=== PATIENT | female | born 2000 | race Caucasian/White ===

== ENCOUNTER 2025-05-26 11:32 | Emergency (ER) | payer MEDICAID, SELFPAY ==
--- NOTE | ~2025-05-26 | CT_ITS ---
EXAMINATION: CT HEAD WITHOUT IV CONTRAST HISTORY: severe headache, nausea, woke up w black eye. TECHNIQUE: Unenhanced helical CT of the head was performed per standard departmental protocol. Coronal and sagittal reformats of the head were also evaluated. One or more of the following techniques was used for dose reduction: Automated exposure control, adjustment of the mA and/or kV according to patient size, use of iterative reconstruction technique. DLP: 578 mGy-cm COMPARISON: There are no prior studies available for comparison. FINDINGS: BRAIN: The brain parenchyma is unremarkable. There is normal kimbrough/white differentiation. The ventricular system is normal in size and configuration. There is no mass effect or midline shift. No intra- or extra-axial fluid collections are identified. SINUSES: The visualized paranasal sinuses are clear. The mastoid air cells and middle ear cavities are well pneumatized. ORBITS: The visualized orbits are unremarkable. BONES/SOFT TISSUES: The extracranial soft tissues are unremarkable. The calvarium is intact. No suspicious lytic or sclerotic lesions. CT/CT head/brain wo IV con IMPRESSION: Unremarkable exam. Electronically signed by: Sarah Yo MD 05/26/2025 02:47 PM EDT
--- NOTE | ~2025-05-26 | US_ITS ---
EXAMINATION: US ABDOMEN LIMITED CLINICAL INFORMATION: Right upper quadrant pain, nausea, vomiting, elevated bilirubin. COMPARISON: None available. TECHNIQUE: Real-time imaging of the right upper quadrant abdominal viscera. FINDINGS: GALLBLADDER: The gallbladder is physiologically distended without evidence of stones, sludge, polyps, wall thickening or pericholecystic fluid. COMMON BILE DUCT: Normal in caliber measuring 0.2 cm in diameter. Discussed with hassock maker. No tenderness reported in the area of the gallbladder. US/US abdomen limited IMPRESSION: No evidence of cholelithiasis. No sonographic findings suggest acute cholecystitis. Electronically signed by: Renato Zurita MD 05/26/2025 04:35 PM EDT
[2025-05-26 11:44] VITALS: BP 117/77; PULSE 57; RESP 18; TEMP 37.1; O2SAT 99; BMI 20.4
--- NOTE | 2025-05-26 11:51 | ED.GENADULT ---
HPI - General Adult General Chief complaint: Nausea/Vomiting/Diarrhea Stated complaint: vomiting, headache Time Seen by Provider: 05/26/25 12:05 Source: patient and other (Friend at bedside) Mode of arrival: ambulatory Limitations: no limitations History of Present Illness ED Provider: LIZZY Peralta HPI narrative: 25-year-old female without significant medical history presents to the ED due to headache and vomiting. Patient states she woke up this morning and shortly after noticed she had a severe frontal, throbbing headache. Patient states she tried to take a warm shower, but felt nauseous and vomited twice. Patient reports the headache is associated with photosensitivity, and neck pain. Patient states she noticed a black eye on the right side, but does not know how this happened does not remember injury/trauma or fall. Patient had 2 more episodes of vomiting while in the department today. Denies sick contacts, chest pain, shortness of breath, diarrhea, black/tarry stool MD complaint: headache, nausea, vomiting Related Data Allergies Allergy/AdvReac Type Severity Reaction Status Date / Time lactose Allergy Unknown Verified 05/26/25 11:47 wheat Allergy Unknown Verified 05/26/25 11:47 [facility] Past Medical History Attestation statement: The following information was validated with the patient. Source: old records reviewed and nursing notes reviewed Physical Exam ED Vital Signs: Vital Signs - 24 hr 05/26/25 14:13 05/26/25 18:01 Temperature 97.3 F Pulse Rate 68 64 Respiratory Rate 15 64 H Blood Pressure 108/64 104/53 L Pulse Oximetry 97 100 Oxygen Delivery Method Room Air Room Air BMI result Body Mass Index 20.4 GENERAL APPEARANCE: ?AxOx4, generally well-appearing, no acute distress. HEENT: ?NC. MMM. EOMI, clear conjunctiva, small ecchymosis under the R eye, oropharynx clear. TTP of B/L cervical paraspinal muscles, no midline spinal tenderness, no bony step offs palpated or observed, full ROM intact NECK: ?Supple without lymphadenopathy.? No stiffness or restricted ROM. HEART:? Normal rate and regular rhythm, normal S1/S2, no m/r/g LUNGS:? CTAB, moving air well. No crackles or wheezes are heard. ABDOMEN: ?Soft, nondistended, no rigidity, mild TTP of the right upper quadrant BACK: No CVAT, no obvious deformity. EXTREMITIES: ?Without cyanosis, clubbing or edema. NEUROLOGICAL: ?Grossly nonfocal. Alert and oriented, moving all 4 extremities. Negative Brudzinski, negative Kernig sign, patient is able to fully flex, extend, and perform lateral bending, without pain, no altered mental status or confusion. Skin: ?Warm and dry without any rash. Course Course Course Narrative: RME: 25 year female presents to ED for headache, neck pain 2 episodes of clear vomiting that began this morning. Patient states weakness Tylenol. Patient states no one else at home is sick. Vital signs stable. Labs COVID influenza UA ordered Medications Administered Discontinued Medications Generic Name Dose Route Start Last Admin Trade Name Freq PRN Reason Stop Dose Admin Diphenhydramine HCl 25 mg 05/26/25 14:28 05/26/25 14:58 Diphenhydramine Hcl 50 Mg/Ml Vial IVPUSH 05/26/25 14:29 25 mg ONCE ONE Administration Acetaminophen 1,000 mg in 100 mls @ 400 mls/hr 05/26/25 14:24 05/26/25 15:44 Ofirmev IV 05/26/25 14:38 Infused ONCE ONE Infusion Lactated Ringer's 1,000 mls @ 999 mls/hr 05/26/25 13:30 05/26/25 14:30 Lr IV 05/26/25 14:30 Infused .Q1H1M LEX Infusion Metoclopramide HCl 10 mg 05/26/25 14:28 05/26/25 14:58 Metoclopramide Hcl 10 Mg/2 Ml Vial IVPUSH 05/26/25 14:29 10 mg ONCE ONE Administration Ondansetron HCl 4 mg 05/26/25 13:30 05/26/25 13:30 Ondansetron Hcl 4 Mg/2 Ml Vial IVPUSH 05/26/25 13:31 4 mg ONCE ONE Administration Medical Decision Making Medical Decision Making MDM Narrative: 25-year-old female without significant medical history presents to the ED due to headache and vomiting. Patient states she woke up this morning and shortly after noticed she had a severe frontal, throbbing headache. Patient states she tried to take a warm shower, but felt nauseous and vomited twice. Patient reports the headache is associated with a photosensitivity, and neck pain. Patient states she noticed a black eye on the right side, but does not know how this happened does not remember injury/trauma or fall. Patient had 2 more episodes of vomiting while in the department today. VS on initial observation-BP 108/64, pulse rate of 68, respiratory rate of 15, afebrile with oral temp of 98.7?, O2 saturation 97% on room air. Physical exam reveals lungs clear to auscultation bilaterally, cardiac exam with regular rate and rhythm without murmurs/rubs/gallops, abdomen is soft, non distended, no guarding with mild tenderness of the RUQ, extremities without edema, TTP of bilateral cervical paraspinal muscles, no midline spinal tenderness, full ROM, negative Brudzinski, negative Kernig sign, no meningeal signs. Plan: labs, UA, CT head/brain, US abdomen - Patient medicated with IV fluids, 1g IV tylenol, 10mg IV reglan, 25mg IV benadryl Labs without leukocytosis/leukopenia, left shift of 74.2, H&H stable, elevated bilirubin at 1.8, lipase WNL at 28, beta hCG negative, no electrolyte abnormalities. Viral serology negative CT head brain negative U/S abdomen negative for cholelithiasis, cholecystitis Patient presents with headache this morning upon waking up associated with photosensitivity and nausea. Patient had a black eye on the R side but does not know how it happened. Denies thunderclap onset, focal neurological deficits, altered mental status, vision loss, or meningeal signs. Vitals reviewed: patient afebrile and hemodynamically stable. Neuro exam nonfocal. NIHSS = 0. Labs reviewed and without acute abnormalities. CT head obtained and did not show hemorrhage or mass effect. Low suspicion for SAH, meningitis, stroke, or other secondary emergent cause of headache at this time. Given reassuring exam and stable vitals, most consistent with migraine. Patient treated with IV fluids, IV reglan, IV benadryl and IV tylenol with improvement of symptoms. Patient clinically stable for discharge with strict return precautions for sudden severe ?thunderclap? headache, fever, vision loss, new neurological deficits, or change from baseline headache pattern. I encouraged patient to follow up with PCP, patient is in agreement with the plan. Differential Diagnosis Differential Diagnoses: The differential diagnosis associated with the presentation includes ICH meningitis Migraine Tension headache Electrolyte abnormality Admission/Observation Consideration of admission/observation: Escalation of care including admission/observation considered Lab Data MDM Lab Attestation statement: I reviewed the patient's lab results. 05/26/25 11:57 05/26/25 11:57 Labs: Lab Results 05/26/25 05/26/25 Range/Units 11:57 16:42 WBC 8.3 (4.8-10.8) X10*3/uL RBC 3.86 L (4.20-5.50) X10*6/uL Hgb 12.1 (12.0-16.0) g/dl Hct 36.7 L (37.0-47.0) % MCV 95.1 (80.0-98.0) fL MCH 31.3 (27.0-33.0) pg MCHC 33.0 (31.0-35.0) g/dl RDW 11.8 (11.0-16.0) % Plt Count 201 (160-400) X10*3/uL MPV 9.5 (9.4-12.3) fL Immature Gran % (Auto) 0.5 H (0.0-0.4) % Neut % (Auto) 74.2 H (45-73) % Lymph % (Auto) 18.8 L (20-40) % [place] % (Auto) 5.6 (2-11) % Eos % (Auto) 0.4 (0-4) % Baso % (Auto) 0.5 (0-2) % Lymph # (Auto) 1.6 (1.2-4.9) X10*3/uL [place] # (Auto) 0.5 (0.1-1.2) X10*3/uL Eos # (Auto) 0.0 (0.0-0.4) X10*3/uL Baso # (Auto) 0.0 (0.0-0.2) X10*3/uL Abs Immat Gran (auto) 0.04 H (0.00-0.03) X10*3/uL Absolute Neuts (auto) 6.1 (2.0-8.3) x10*3/uL Absolute Nucleated RBC 0.000 (0.0-0.012) X10*3/uL Nucleated RBC % (auto) 0.0 (0.0-0.2) /100WBC Sodium 136 (135-145) mmol/L Potassium 4.5 (3.3-5.1) mmol/L Chloride 103 (96-108) mmol/L Carbon Dioxide 29 (22-29) mmol/L Anion Gap 9 L (12-20) BUN 12 (9-16) mg/dL Creatinine 0.58 (0.5-1.4) mg/dL Estim Creat Clear Calc 138.0 Estimated GFR > 60 Random Glucose 98 (60-115) mg/dL Calcium 8.8 (8.4-10.2) mg/dL Total Bilirubin 1.8 H (0.0-1.0) mg/dL AST 21 (5-31) U/L ALT 15 (0-31) U/L Alkaline Phosphatase 51 (39-117) U/L Total Protein 6.9 (6.5-8.0) g/dL Albumin 4.5 (3.5-5.0) g/dL Lipase 28 (8-78) U/L Beta HCG, Quant < 2 mIU/mL Urine Color Yellow Urine Appearance Cloudy Urine pH >= 9.0 (5.0-9.0) Ur Specific [place] 1.025 (1.005-1.025) Urine Protein Trace (Neg-Trace) mg/dL Urine Glucose (UA) Negative (Negative) mg/dL Urine Ketones 15 (Negative) mg/dL Urine Blood Negative (Negative) Urine Nitrite Negative (Negative) Ur Leukocyte Esterase Negative (Negative) COVID-19 (SID) Negative (Negative) COVID-19 Clin Com See Note Influenza Type A (YUE) Negative (Negative) Influenza Type B (YUE) Negative (Negative) Influenza A & B Note See Note Independent Interpretation I performed an independent interpretation of an: CT Scan Interpretation: I independently interpreted the CT head brain which was negative for acute intracranial findings, I agree with the radiologist's interpretation Radiology Impression Discussion of test interpretation with radiology: I have reviewed the radiologist's reading. Radiologist Impression: CT head brain FINDINGS: BRAIN: The brain parenchyma is unremarkable. There is normal kimbrough/white differentiation. The ventricular system is normal in size and configuration. There is no mass effect or midline shift. No intra- or extra-axial fluid collections are identified. SINUSES: The visualized paranasal sinuses are clear. The mastoid air cells and middle ear cavities are well pneumatized. ORBITS: The visualized orbits are unremarkable. BONES/SOFT TISSUES: The extracranial soft tissues are unremarkable. The calvarium is intact. No suspicious lytic or sclerotic lesions. CT/CT head/brain wo IV con IMPRESSION: Unremarkable exam. Electronically signed by: Sarah Yo MD 05/26/2025 02:47 PM EDT RP Dictated By: Sarah Yo MD Signed By: <Electronically signed by Sarah Yo MD in OV> 05/26/25 1449 Independent Historian Clinical information obtained from an independent historian. History obtained from or confirmed by: Other (Friend at bedside corroborating history) External Record Review External record reviewed: Inpatient record, Office record and Outpatient record Chronic Conditions Patient?s care impacted by: Other (No known medical history) Discharge Plan Discharge Clinical Impression: Migraine Patient Disposition: Home, Self-Care Instructions: Migraine Headache (ED) Additional Instructions: You were evaluated in the ED for severe headache with nausea and vomiting. Your blood work was reassuring as there is no elevation or decrease in your white blood cell count indicative of infection. No electrolyte abnormality. Your bilirubin was elevated however the ultrasound of your abdomen was negative. Please follow up with your primary care doctor on these findings. The CT of your head brain was negative for any acute intracranial findings. Your symptoms improved after being medicated with IV fluids, 1 g of IV Tylenol, 10 mg of Reglan, and 25 mg of Benadryl. Your symptoms are most likely due to migraine headache. Please ensure you are getting plenty of hydration, and rest. You can manage pain at home by taking 500 mg of Tylenol, 400 mg of ibuprofen every 6 hours. Please follow up with your primary care doctor to ensure resolution of your symptoms. Please return to the emergency department if you experience worsening nausea, vomiting, worsening headache, altered mental status, confusion, chest pain, shortness of breath or any new/worsening/concerning symptoms Interventions: ED Discharge Assessment Last Done: 05/26/25 18:01 Discharge Date/Time: 05/26/25 18:02 Print Language: Slovenian
[2025-05-26 12:01] LABS: MANUAL DIFF FLAG NO
[2025-05-26 12:03] LABS: Hematocrit 36.7 % (37.0-47.0); Hemoglobin 12.1 g/dl (12.0-16.0); Imm Gran Abs Auto 0.04 X10*3/uL (0.00-0.03); Imm Gran Pct Auto 0.5 % (0.0-0.4); Lymphocytes Absolute Auto 1.6 X10*3/uL (1.2-4.9); Mean Corpuscular HGB Conc 33.0 g/dl (31.0-35.0); Mean Corpuscular Hemoglobin 31.3 pg (27.0-33.0); Mean Corpuscular Volume 95.1 fL (80.0-98.0); NRBC Abs Auto 0.000 X10*3/uL (0.0-0.012); NRBC Pct Auto 0.0 /100WBC (0.0-0.2); Platelet Count 201 X10*3/uL (160-400); Red Blood Count 3.86 X10*6/uL (4.20-5.50); White Blood Count 8.3 X10*3/uL (4.8-10.8)
[2025-05-26 12:17] LABS: COVID-19 Test Negative (Negative); IDNOW Serial# 55D5AD1C; IDNOW Serial# 58CA691E; Influenza B2 Negative (Negative)
[2025-05-26 12:25] LABS: Alanine Aminotransferase 15 U/L (0-31); Albumin Level 4.5 g/dL (3.5-5.0); Alkaline Phosphatase 51 U/L (39-117); Anion Gap 9 (12-20); Aspartate Amino Transferase 21 U/L (5-31); Blood Urea Nitrogen 12 mg/dL (9-16); Calcium 8.8 mg/dL (8.4-10.2); Carbon Dioxide 29 mmol/L (22-29); Chloride 103 mmol/L (96-108); Creatinine Clr Calc Pharmacy 138.0; Estimated Glomerular Filt Rate > 60; Lipase 28 U/L (8-78); Potassium 4.5 mmol/L (3.3-5.1); Sodium 136 mmol/L (135-145); Total Protein 6.9 g/dL (6.5-8.0)
--- NOTE | 2025-05-26 12:34 | PC.NURSE ---
Pt roomed to valenzuela bed, VSS states frontal FORD present and N/V began shortly after FORD. Pt states FORD has happened before but she has never been dx with migraine. Pt denies light sensitivity or ay other Neuro symptoms. Pt with bruise under right eye and states she was unaware of it but says she noted tenderness under right eye but had not looked. Does not recall an injury. No other complaints.
[2025-05-26] MEDS: Lactated Ringers 1,000 ML 999 ML IV (13:30)
[2025-05-26 14:13] VITALS: BP 108/64; PULSE 68; RESP 15; O2SAT 97
--- NOTE | 2025-05-26 15:19 | PC.NURSE ---
Pt ambulated to and from BR independently- N/V improved after ofran- IVF given as ordered. Pt resting.
--- NOTE | 2025-05-26 15:50 | PC.NURSE ---
Pt is sleeping. Periorbital right discoloration noted. No active vomiting at this time.
[2025-05-26 16:49] LABS: Appearance Urine Cloudy; Glucose Urine UA Negative (Negative); PH >= 9.0 (5.0-9.0); Specific Gravity - Urine 1.025 (1.005-1.025)
--- OUTSIDE RECORDS SUMMARY | 2025-05-26 17:08 | XMS_ITS | Clinical Summary ---
Author Organization [facility] Address [address] [place] [id number] Phone Care Team Providers Care Filing And Polishing Supervisor Name Role Phone Lisbet Aly DO Primary Care Provider [phone] Allergies No known active allergies Medications No known medications Immunizations Immunization Administration Dates Next Due Rabies Fibroblast Culture 03/19/2021,03/12/2021, 03/08/2021,03/05/2021 Rabies Immune Globulin 03/05/2021 Social History Tobacco Use Types Packs/Day Years Used Date Smoking Tobacco: Never Smokeless Tobacco: Never Alcohol Use Standard Drinks/Week Comments Never 0 (1 standard drink = 0.6 oz pur e alcohol) Education Answer Date Recorded Are you interested in more education? Not on shade e 11/25/2022 Are you concerned about learning? Not on file 11/25/2022 No 11/25/2022 No 11/25/2022 Digital Access Answer Date Recorded No 12/24/2022 No 12/24/2022 No 12/24/2022 Reliable internet access at home? Not on file 12/24/2022 Device with a working camera? Not on file Comments No Sex and Gender Information Value Date Recorded Sex Assigned at Female 03/05/2021 1:14 PM EDT Legal Sex Female 12:32 PM EDT Gender Identity Non-binary 03/05/2021 1:14 PM EDT Sexual Orientation Not on file Last Filed Vital Signs Vital Sign Reading Time Taken Comments Blood Pressure 106/70 03/19/2021 8:22 AM EDT Pulse 65 03/19/2021 8:22 AM EDT Temperature 36.3 C (97.3 F) 03/19/2021 8:22 AM EDT Respiratory Rate 16 03/19/2021 8:22 AM EDT Oxygen Saturation 100% 03/19/2021 8:22 AM EDT Inhaled Oxygen Concentration - - Weight 54.4 kg (120 lb) 03/19/2021 8:22 AM EDT Height 170.2 cm (5' 7 ) 03/19/2021 8:22 AM EDT Body Mass Index 18.79 03/19/2021 8:22 AM EDT Plan of Treatment Health Maintenance Due Date Last Done Comments DEPRESSION SCREENING 2012 SMOKING Hx and SMOKELESS TOBACCO SCREENING 2013 HPV VACCINES (1 - 3-dose series) 2015 HEPATITIS C SCREENING 2018 HIV ONE-TIME SCREENING (18-6 5 YEARS) 2018 PAP SMEAR 2021 INFLUENZA VACCINE (#1) 2025 07/03/2019 COVID-19 VACCINE (3 - 2024-2 6 season) 2025 11/30/2020, 11/09/2020 Adult Td,Tdap Booster 11/16/2028 11/16/2018 HEPATITIS A VACCINES Aged Out No long er eligible based on patient's age to complete this topic HIB VACCINES Aged Out No longer eligi ble based on patient's age to complete this topic MENINGOCOCCAL VACCINES (ACWY) Aged Out No longer eligible based on patient's age to complete this topic MENINGOCOCCAL VACCINES (B) Aged Out N o longer eligible based on patient's age to complete this topic PNEUMOCOCCAL VACCINES (0-49 years) Aged Out No longer eligible b ased on patient's age to complete this topic Medical Devices Not on file Insurance [facility] [employer] [facility] [facility] Care Teams Filing And Polishing Supervisor Relationship Specialty Start Date End Date Lisbet Aly DO [address] [place] [address] [place] [address] PCP - General 03/05/21 Additional Source Comments The information contained in this document represents components of the legal health record. It is not the complete legal health record.[facility]
[2025-05-26 18:01] VITALS: BP 104/53; PULSE 64; RESP 64; TEMP 36.3; O2SAT 100
== END 2025-05-26 18:02 | disposition home or self-care (01) ==
PROVIDERS: Physician Assistant; Emergency Provider Emergency Medicine
DX: G43.909 Migraine, unspecified, not intractable, without status migrainosus (principal); R11.2 Nausea with vomiting, unspecified; M54.2 Cervicalgia; L56.8 Other specified acute skin changes due to ultraviolet radiation; R10.11 Right upper quadrant pain; Z11.52 Encounter for screening for COVID-19; Z79.899 Other long term (current) drug therapy
CPT/HCPCS: 70450; 76705; 80053; 81003; 83690; 84702; 85025; 87502; 87635; 96361; 96365; 96375; 99284; J0131; J1200; J2405; J2765; J7120

== ENCOUNTER → 2025-05-26 14:24 | Outpatient (BNV) | payer MEDICAID, SELFPAY | PROVIDERS: Emergency Provider Emergency Medicine; Visit Provider Radiology Diagnostic Radiology | DX: R51.9 Headache, unspecified (principal); R11.10 Vomiting, unspecified; R10.11 Right upper quadrant pain; R11.2 Nausea with vomiting, unspecified; E80.7 Disorder of bilirubin metabolism, unspecified | CPT/HCPCS: 70450; 76705 ==